=== PATIENT | female | born 1995 | race American Indian/Alaskan Native ===

== ENCOUNTER 2023-09-10 18:24 | Emergency (ER) | payer OTHER ==
[2023-09-10] MEDS: Sodium Chloride 0.9% 10 ML Syringe FLUSH PRN (20:12)
[2023-09-10] MEDS: HYDROmorphone 1 MG/ML Syringe IVPUSH ONE (20:13)
[2023-09-10] MEDS: Metoclopramide 10 MG/2 ML SDV IVPUSH ONE (20:16)
[2023-09-10] MEDS: ceFAZolin 1 GM in Sodium Chloride 0.9% 50 ML IV ONE (20:46)
[2023-09-10] MEDS: Diphtheria,Pertussis(Acell),Tetanus Vaccine 0.5 ML Syringe IM ONE (20:49)
[2023-09-10] MEDS: ceFAZolin 1 GM Vial IM ONE (20:50)
[2023-09-10] MEDS: Sodium Chloride 0.9% 100 ML ONE (20:52)
[2023-09-10] MEDS: HYDROmorphone 0.5 MG/0.5 ML Syringe IVPUSH ONE ×2 (21:22→22:58)
[2023-09-10] MEDS: LORazepam 2 MG/ML SDV IVPUSH ONE (21:25)
[2023-09-10] MEDS: Propofol 200 MG/20 ML SDV IVPUSH ONE (22:22)
== END 2023-09-10 23:30 | disposition home or self-care (01) ==
LOC: JD.ED 18:24
DX: S82.452A Displaced comminuted fracture of shaft of left fibula, initial encounter for closed fracture (principal); S92.322A Displaced fracture of second metatarsal bone, left foot, initial encounter for closed fracture; S93.422A Sprain of deltoid ligament of left ankle, initial encounter; Z88.5 Allergy status to narcotic agent; V03.00XA Pedestrian on foot injured in collision with car, pick-up truck or van in nontraffic accident, initial encounter
CPT/HCPCS: 27788; 73590; 73600; 73610; 73630; 96365; 96375; 96376; 99152; 99283; J0690; J1170; J2060; J2704; J2765; J3490; 28515; 99284